=== PATIENT | female | born 1990 | race Caucasian/White ===

== ENCOUNTER 2018-06-05 22:39 | Emergency (ER) | payer SELFPAY ==
[~2018-06-05] VITALS: Ht 172.7 cm; Wt 105.0 kg
[~2018-06-05 22:39] MED LIST: FLUO20TA25 PO; GABA-826 PO; NAPR-685 PO
--- NOTE | 2018-06-05 22:54 | NUR ---
PT PRESENTED WITH C/O LEFT LEG SWELLING STARTED 1 WEEK AGO, LEFT LEG PAIN STARTED 2 DAYS AGO, PT DENIES INJURY OR FALL. PROVIDED PT WITH GOWN, WARM BLANKETS, MONITORS APPLIED, SIDERAILS UP X2, CALL LIGHT WITHIN REACH. [employer] DIRECT[employer] AT BEDSIDE FOR EVAL.
[2018-06-05] MEDS ORDERED: KETOROLAC 30 MG/1 ML ONE (23:05)
[2018-06-05] MEDS: KETOROLAC 30 MG/1 ML IM ONE (23:08)
--- NOTE | 2018-06-05 23:10 | NUR ---
pt medicated per mar. pt to xray
[2018-06-06 00:38] VITALS: BP 107/72
--- NOTE | 2018-06-06 00:39 | NUR ---
late entry 0000- pt resting calmly, denies pain or needs at this time, call light within reach.
== END 2018-06-06 01:00 | disposition home or self-care (01) ==
LOC: ED 22:50
DX: M54.42 Lumbago with sciatica, left side (principal); M79.662 Pain in left lower leg; F32.9 Major depressive disorder, single episode, unspecified; F41.1 Generalized anxiety disorder; Z90.49 Acquired absence of other specified parts of digestive tract; Z87.441 Personal history of nephrotic syndrome
CPT/HCPCS: 72110; 73502; 93971; 96372; 99284; J1885; J7512

== ENCOUNTER 2018-07-16 10:38 | Emergency (ER) | payer SELFPAY ==
[~2018-07-16] VITALS: Ht 177.8 cm; Wt 102.5 kg
[2018-07-16 10:51] VITALS: BP 130/86
[2018-07-16] MEDS ORDERED: DEXAMETHASONE 4 MG/ML, 1ML PO ONE ×2 (11:00→12:00)
[2018-07-16] MEDS ORDERED: DEXAMETHASONE 4 MG/ML, 5ML ONE (11:47)
--- NOTE | 2018-07-16 11:49 | NUR ---
Patient/Caregiver given discharge instructions and they have confirmed that they understand the instructions. Patient ambulatory with steady gait.
== END 2018-07-16 13:38 | disposition home or self-care (01) ==
LOC: ED 11:29
DX: J03.00 Acute streptococcal tonsillitis, unspecified (principal)
CPT/HCPCS: 99283; J1100